=== PATIENT | male | born 1960 ===

== ENCOUNTER → 2023-11-15 14:57 | Outpatient (REF) | payer OTHER, SELFPAY | LOC: DHCBS HW 14:57 | PROVIDERS: ATTENDING PHYSICIAN Internal Medicine Interventional Cardiology; FAMILY PHYSICIAN Internal Medicine | DX: R07.9 Chest pain, unspecified (principal) | CPT/HCPCS: 93306 ==

== ENCOUNTER 2024-07-30 06:25 | Day surgery (SDC) | payer OTHER, SELFPAY ==
[2024-07-30 07:26] LABS: Glucose - Point of Care 128 mg/dl (70-99)
== END 2024-07-30 08:40 | disposition home or self-care (01) ==
LOC: GI 06:25
PROVIDERS: ATTENDING PHYSICIAN Internal Medicine
DX: Z12.11 Encounter for screening for malignant neoplasm of colon (principal); D12.3 Benign neoplasm of transverse colon; D12.5 Benign neoplasm of sigmoid colon; K62.1 Rectal polyp; K64.9 Unspecified hemorrhoids; Z86.0100 Personal history of colon polyps, unspecified
CPT/HCPCS: 45385; 88305; 82962